=== PATIENT | male | born 1995 | race Caucasian/White ===

== ENCOUNTER 2019-03-15 10:59 | Emergency (ER) | payer BC, MEDICAID ==
[2019-03-15 12:14] LABS: BASOPHILS # (AUTO) 0.1 10^3/uL (0.0-0.1); BASOPHILS % (AUTO) 1.1 %; EOSINOPHILS # (AUTO) 0.1 10^3/uL (0.0-0.7); EOSINOPHILS % (AUTO) 1.6 %; HGB - HEMOGLOBIN 15.9 g/dL (14.0-18.0); LYMPHOCYTES # (AUTO) 1.7 10^3/uL (1.5-3.5); LYMPHOCYTES % (AUTO) 30.7 %; MEAN CORPUSCULAR HEMOGLOBIN 30.9 pg (27.0-31.0); MEAN CORPUSCULAR HGB CONC 34.4 g/dL (32.0-36.0); MEAN CORPUSCULAR VOLUME 89.7 fL (80.0-94.0); MEAN PLATELET VOLUME 10.3 fL (7.4-11.4); MONOCYTES # (AUTO) 0.3 10^3/uL (0.0-1.0); MONOCYTES % (AUTO) 5.8 %; NEUTROPHILS # (AUTO) 3.4 10^3/uL (1.5-6.6); NEUTROPHILS % (AUTO) 60.6 %; PLT - PLATELET COUNT 198 10^3/uL (130-450); RED BLOOD COUNT 5.15 10^6/uL (4.70-6.10); RED CELL DISTRIBUTION WIDTH 11.9 % (12.0-15.0); WHITE BLOOD COUNT 5.7 x10^3/uL (4.8-10.8)
[2019-03-15 12:25] LABS: ALBUMIN 5.1 g/dL (3.2-5.5); ALBUMIN/GLOBULIN RATIO 1.7 (1.0-2.2); BILIRUBIN,TOTAL 1.4 mg/dL (0.2-1.0); CALCIUM 9.7 mg/dL (8.5-10.3); CREATININE 1.1 mg/dL (0.6-1.2); TOTAL PROTEIN 8.1 g/dL (6.7-8.2)
[2019-03-15] MEDS ORDERED: ONDANSETRON 4 MG/2 ML VIAL IVP STA (13:41)
[2019-03-15] MEDS ORDERED: SODIUM CHLORIDE 0.9% 1,000 ML IV ONE (13:42)
--- NOTE | 2019-03-15 13:45 | ED Physician Documentation ---
History of Present Illness - Stated complaint Stated Complaint: LIGHT HEADED/NAUSEA - Chief complaint Chief Complaint: General - History obtained from History obtained from: Patient - History of Present Illness Timing: Today (24-year-old gentleman had a history of viral encephalitis 9 years ago and history of pots which is usually not debilitating. Over the last week and a half he is had much more dizziness than normal associated with muscle pain worse at the beginning of the day mostly involves the quads, hamstrings, shoulders. He has been nauseous and had some weight loss and its associated wi th light sensitivity but he denies neck stiffness, fevers but he has had chills. There is no headache. No recent travel.) Review of Systems Constitutional: reports: Chills, Fatigue, Weight Loss. denies: Fever Eyes: reports: Photophobia. denies: Loss of vision, Decreased vision Ears: denies: Loss of hearing, Ear pain Nose: denies: Rhinorrhea / runny nose, Congestion Throat: denies: Sore throat Cardiac: denies: Chest pain / pressure, Palpitations Respiratory: denies: Dyspnea, Cough GI: reports: Nausea, Vomiting. denies: Abdominal Pain, Diarrhea PD PAST MEDICAL HISTORY - Present Medications Home Medications: Ambulatory Orders Medication Instructions Recorded Confirmed Ondansetron Odt [Zofran] 4 mg TL Q6H PRN #10 tablet 03/15/19 - Allergies Allergies/Adverse Reactions: Allergies Allergy/AdvReac Type Severity Reaction Status Date / Time No Known Drug Allergies Allergy Verified 03/15/19 11:11 PD ED PE NORMAL - Vitals Vital signs reviewed: Yes - General General: Alert and oriented X 3, No acute distress - HEENT HEENT: PERRL, EOMI - Neck Neck: Supple, no meningeal sign, No bony TTP - Cardiac Cardiac: RRR, No murmur - Respiratory Respiratory: No respiratory distress, Clear bilaterally - Abdomen Abdomen: Non tender - Derm Derm: Normal color, Warm and dry - Extremities Extremities: No deformity, No tenderness to palpate, Normal ROM s pain, No edema, No calf tenderness / cord - Neuro Neuro: Alert and oriented X 3, Normal speech Results - Vitals Vitals: Vital Signs - 24 hr 03/15/19 11:09 Temperature 36.9 C Heart Rate 77 Respiratory 17 Rate Blood Pressure 118/71 O2 Saturation 98 Oxygen O2 Source Room air - Labs Labs: Laboratory Tests 03/15/19 03/15/19 03/15/19 11:13 12:08 12:08 WBC 5.7 RBC 5.15 Hgb 15.9 Hct 46.2 MCV 89.7 MCH 30.9 MCHC 34.4 RDW 11.9 L Plt Count 198 MPV 10.3 Neut # (Auto) 3.4 Lymph # (Auto) 1.7 [place] # (Auto) 0.3 Eos # (Auto) 0.1 Baso # (Auto) 0.1 Absolute Nucleated RBC 0.00 Nucleated RBC % 0.0 ESR Sodium 141 Potassium 4.2 Chloride 103 Carbon Dioxide 29 Anion Gap 9.0 BUN 18 Creatinine 1.1 Estimated GFR (MDRD) 81 L Glucose 100 Calcium 9.7 Iron TIBC % Saturation Transferrin Total Bilirubin 1.4 H AST 18 ALT 15 Alkaline Phosphatase 45 Total Creatine Kinase C-Reactive Protein Total Protein 8.1 Albumin 5.1 Globulin 3.0 Albumin/Globulin Ratio 1.7 Lipase 35 Influenza A (Rapid) Negative Influenza B (Rapid) Negative 03/15/19 03/15/19 12:08 12:08 WBC RBC Hgb Hct MCV MCH MCHC RDW Plt Count MPV Neut # (Auto) Lymph # (Auto) [place] # (Auto) Eos # (Auto) Baso # (Auto) Absolute Nucleated RBC Nucleated RBC % ESR 1 Sodium Potassium Chloride Carbon Dioxide Anion Gap BUN Creatinine Estimated GFR (MDRD) Glucose Calcium Iron 129 TIBC 312 % Saturation 41 Transferrin 223 Total Bilirubin AST ALT Alkaline Phosphatase Total Creatine Kinase 57 C-Reactive Protein < 1.0 Total Protein Albumin Globulin Albumin/Globulin Ratio Lipase Influenza A (Rapid) Influenza B (Rapid) PD MEDICAL DECISION MAKING - ED course ED course: 24-year-old gentleman with muscle pain, vomiting. Examination is unremarkable. He has had vomiting with weight loss. We will give him some IV fluids. Initial triage orders done, notable for very mildly elevated bilirubin. Otherwise negative, including negative flu swab. Will add on inflammatory markers. Mom requests iron panel, there is a family history of hemochromatosis. He was feeling better after IV fluids and Zofran. Lab work and inflammatory markers were unremarkable. Departure - Departure Disposition: 01 Home, Self Care Clinical Impression: Nausea, Muscle pain Condition: Good Record reviewed to determine appropriate education?: Yes Instructions: ED Acute Pain [facility] Follow-Up: [facility] [Provider Group] Prescriptions: Ondansetron Odt [Zofran] 4 mg TL Q6H PRN #10 tablet PRN Reason: Nausea / Vomiting Comments: Again the cause of your symptoms today is not clear. Your lab work is un remarkable with no evidence of hemochromatosis or inflammatory disorder. You do need to find a primary care physician to follow-up with, return anytime if worse.
[2019-03-15 14:23] LABS: % IRON SATURATION 41 % (20-50); CK- CREATINE KINASE 57 IU/L (22-269); IRON 129 ug/dL (45-182); TOTAL IRON BINDING CAPACITY 312 ug/dL (250-450); TRANSFERRIN 223 mg/dL (180-329)
[2019-03-15 14:29] LABS: CRP - C-REACTIVE PROTEIN < 1.0 mg/dL (0-1.0)
[2019-03-15 15:35] VITALS: BP 97/62
== END 2019-03-15 15:36 | disposition home or self-care (01) ==
LOC: ED 10:59
DX: R11.0 Nausea (principal); M79.10 Myalgia, unspecified site; Z86.61 Personal history of infections of the central nervous system
CPT/HCPCS: 36415; 80053; 82550; 83540; 83690; 84466; 85025; 85651; 86140; 87275; 87276; 96361; 96374; 99284